=== PATIENT | male | born 1990 | race Caucasian/White ===

== ENCOUNTER 2019-02-28 15:36 | Emergency (ER) | payer SELFPAY ==
--- NOTE | 2019-02-28 17:07 | ED ---
Lower Extremity - HPI Summary HPI Summary: 28-year-old male presents with right ankle injury today. He sees he states his stepped out of his truck and twisted his ankle. He is not able to place weight on in the area. No previous fracture area. Denies any knee or foot pain. Has no medical conditions. Patient is a business architect. - History of Current Complaint Chief Complaint: EDExtremityLower Stated Complaint: RIGHT ANKLE INJURY PER PT Time Seen by Provider: 02/28/19 16:56 Pain Intensity: 6 PMH/Surg Hx/FS Hx/Imm Hx Endocrine/Hematology History: Denies: Hx Anticoagulant Therapy Respiratory History: Denies: Hx Asthma Infectious Disease History: No Infectious Disease History: Denies: Traveled Outside the [place] in Last 30 Days - Family History Known Family History: Positive: Non-Contributory - Social History Alcohol Use: Occasionally Substance Use Type: Reports: None Review of Systems Negative: Fever Negative: Chest Pain Negative: Shortness Of Breath Positive: Myalgia - right ankle All Other Systems Reviewed And Are Negative: Yes Physical Exam Triage Information Reviewed: Yes Vital Signs On Initial Exam: Initial Vitals Temp Pulse Resp BP Pulse Ox 99.1 F 83 18 156/97 97 02/28/19 15:43 02/28/19 15:43 02/28/19 15:43 02/28/19 15:43 02/28/19 15:43 Vital Signs Reviewed: Yes Appearance: Positive: Well-Appearing Skin: Positive: Warm, Dry Head/Face: Positive: Normal Head/Face Inspection Eyes: Positive: Normal, Conjunctiva Clear ENT: Positive: Pharynx normal Respiratory/Lung Sounds: Positive: Clear to Auscultation, Breath Sounds Present Cardiovascular: Positive: Normal, RRR Musculoskeletal: Positive: Limited @ - right ankle, Edema Right - lateral, Other - Tenderness over lateral aspect of left ankle. Good pulses, sensation grossly intact Neurological: Positive: Normal Psychiatric: Positive: Normal Diagnostics - Vital Signs Vital Signs Temp Pulse Resp BP Pulse Ox 02/28/19 15:43 99.1 F 83 18 156/97 97 - Laboratory Lab Statement: Any lab studies that have been ordered have been reviewed, and results considered in the medical decision making process. - Radiology ankle Radiology Interpretation Completed By: Radiologist Summary of Radiographic Findings: IMPRESSION: SOFT TISSUE SWELLING. NO ACUTE OSSEOUS INJURY. IF SYMPTOMS PERSIST, RECOMMEND REPEAT IMAGING Lower Extremity Course/Dx - Course Course Of Treatment: 28-year-old male presents with right ankle injury today. He sees he states his stepped out of his truck and twisted his ankle. He is not able to place weight on in the area. No previous fracture area. Denies any knee or foot pain. Has no medical conditions. Patient is a business architect. On exam tenderness over lateral of her ankle. X-ray shows no fracture. Gave gel splint. Will treat with ice and elevation. Patient understands and agrees plan. - Diagnoses Differential Diagnosis/HQI/PQRI: Positive: Fracture (Closed), Sprain, Strain Provider Diagnoses: Right ankle injury Discharge ED - Sign-Out/Discharge Documenting (check all that apply): Patient Departure Patient Received Moderate/Deep Sedation with Procedure: No - Discharge Plan Condition: Good Disposition: HOME Patient Education Materials: Ankle Sprain (ED) Forms: *Work Release Referrals: [facility] [place] [facility]ERR[facility] [Outside] Additional Instructions: Stay off ankle as much as possible Ice, elevate Ibuprofen or tyenlol every 6 hours for pain Follow up with primary if no improvement Return to ED if develop or any new or worsening symptoms - Billing Disposition and Condition Condition: GOOD Disposition: Home
[2019-02-28 17:30] VITALS: BP 138/88
== END 2019-02-28 17:20 | disposition home or self-care (01) ==
LOC: ED 15:36
DX: S99.911A Unspecified injury of right ankle, initial encounter (principal); X50.0XXA Overexertion from strenuous movement or load, initial encounter; Y92.9 Unspecified place or not applicable; M25.571 Pain in right ankle and joints of right foot
CPT/HCPCS: 99282